=== PATIENT | female | born 1940 | race Caucasian/White ===

== ENCOUNTER 2016-04-28 16:02 | Emergency (ER) | payer MEDICARE ==
[~2016-04-28 16:02] MED LIST: AMLO5TAB2 PO; AMLO5TAB4 PO; ASPI325T4 PO; ASPI81TA9 PO; CHOL500015 PO; CLOP75TA PO; CLOP75TA27 PO; FERR325T31 PO; HYDR-2762 PO; LISI-334 PO; MAGN400C PO; METO25TA4 PO; NITR1PAT26 TD; PANT20TA3 PO; PRED2.5T PO; PRED5TAB PO; SIMV40TA3 PO
--- NOTE | 2016-04-28 16:50 | ED.ADGEN ---
Past History Past Medical History: COPD, High Cholesterol, Hypertension, PA, Renal Failure, TIA, Other Past Surgical History: Appendectomy, Cholecystectomy, Oophorectomy, Other Smoking: Quit Greater Than 1 Year Alcohol Use: None Drug Use: None Adult General HPI HPI Patient is a 76-year-old female presents emergency department by ambulance. She is accompanied by her daughter. Patient suffered a stroke last week. She was discharged from the hospital 48 hours ago. Her daughter feels that she has had a decline in her mental status since that time. On Friday she was indicating with her head yes or no and today she is not communicating that. Patient's daughter is also concerned about her blood pressure. Of note, her doctor did instruct home health nurse to give her dose of amlodipine. The daughter decided that the patient should come to the hospital instead. She has not want an IV or blood work at this time. She does not want another CT scan done. We will check to see if the patient possibly has a urinary tract infection some decreased mental status. Patient has no fevers, nausea, vomiting. Review of Systems Review of Systems Constitutional: Denies fever or chills [] Eyes: Denies change in visual acuity, redness, or eye pain [] HENT: Denies nasal congestion or sore throat [] Respiratory: Denies cough or shortness of breath [] Cardiovascular: No additional information not addressed in HPI [] GI: Denies abdominal pain, nausea, vomiting, bloody stools or diarrhea [] : Denies dysuria or hematuria [] Musculoskeletal: Denies back pain or joint pain [] Integument: Denies rash or skin lesions [] Neurologic: Denies headache, focal weakness or sensory changes [] Endocrine: Denies polyuria or polydipsia [] Current Medications Current Medications Current Medications Medications (Trade) Dose Ordered Sig/Jerry Start Time Stop Time Status Last Admin Dose Admin Amlodipine Besylate (Norvasc) 5 mg 1X ONCE 04/28/16 17:15 04/28/16 17:16 DC 04/28/16 17:10 5 MG Allergies Allergies Allergies Coded Allergies Type Severity Reaction Last Updated Verified cephalexin Allergy Severe "It affects my nuscles" 09/18/13 Yes ciprofloxacin Allergy Intermediate rash 07/12/14 No Physical Exam Physical Exam Constitutional: Well developed, well nourished, no acute distress, non-toxic appearance. [] HENT: Normocephalic, atraumatic, bilateral external ears normal, oropharynx moist, no oral exudates, nose normal. [] Eyes: PERRLA, EOMI, conjunctiva normal, no discharge. [] Neck: Normal range of motion, no tenderness, supple, no stridor. [] Cardiovascular:Heart rate regular rhythm, no murmur [] Lungs & Thorax: Bilateral breath sounds clear to auscultation [] Abdomen: Bowel sounds normal, soft, no tenderness, no masses, no pulsatile masses. [] Skin: Warm, dry, no erythema, no rash. [] Back: No tenderness, no CVA tenderness. [] Extremities: No tenderness, no cyanosis, no clubbing, ROM intact, no edema. 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 [] Current Patient Data Vital Signs Vital Signs Date Time Temp Pulse Resp B/P Pulse Ox O2 Delivery O2 Flow Rate FiO2 04/28/16 17:25 147/93 04/28/16 17:10 79 04/28/16 16:10 99.5 20 97 Room Air EKG EKG EKG interpreted by me, normal sinus rhythm, 76 bpm, no ST segment elevation, leftward axis, no change from previous. [] Radiology/Procedures Radiology/Procedures [] Course & Med Decision Making Course & Med Decision Making Pertinent Labs and Imaging studies reviewed. (See chart for details) Patient is a reassuring urinalysis. She will be did give her the 1 dose of amlodipine and a blood pressures responded nicely. He is now 147/77. The patient is smiling and communicating nonverbally. Her daughter is happy with the plan and ready to take her home at this point. She will of course return to emergency department sooner she develops any new or worsening symptoms. [] Final Impression Final Impression Hypertension [] Problems: Dragon Disclaimer Dragon Disclaimer This chart was dictated in whole or in part using Voice Recognition software in a busy, high-work load, and often noisy Emergency Department environment. It may contain unintended and wholly unrecognized errors or omissions. MARIELLA NINA MD Apr 28, 2016 16:50
[2016-04-28] MEDS ORDERED: AMLODIPINE BESYLATE 5 MG TABLET PO ONE (17:15)
[2016-04-28 17:31] LABS: CLARITY,URINE CLEAR; COLOR,URINE YELLOW; GLUCOSE,URINE NEG (NEG)
[2016-04-28 17:32] LABS: BILIRUBIN,URINE SMALL (NEG); NITRITE,URINE NEG (NEG); UROBILINOGEN,URINE 1 mg/dL (0.2 mg/dL)
[2016-04-28 17:35] VITALS: BP 148/92
--- NOTE | 2016-04-29 06:22 | EKG ---
[address] [id number] Test Date: 2016-04-28 Test Time: 16:17:02 Pat Name: CHRISTIAN YOUNG Department: Room: Gender: F Radio Assembler: : 1940 Requested By: MARIELLA NINA Order Number: [id number] Reading MD: Reynaldo Cerda Measurements Intervals [place] Rate: 76 P: -9 LA: 140 QRS: -14 QRSD: 110 T: -33 QT: 420 QTc: 477 Interpretive Statements SINUS RHYTHM RBBB CANNOT RULE OUT INFERIOR INFARCT PAC Electronically Signed On 04-30-2016 9:56:00 REGISTERED NURSE MIDWIFE by Reynaldo Cerda
== END 2016-04-28 17:58 | disposition home or self-care (01) ==
LOC: ER 16:04
DX: I10 Essential (primary) hypertension (principal); J44.9 Chronic obstructive pulmonary disease, unspecified; E78.00 Pure hypercholesterolemia, unspecified; I25.2 Old myocardial infarction; N19 Unspecified kidney failure; Z86.73 Personal history of transient ischemic attack (TIA), and cerebral infarction without residual deficits; Z87.891 Personal history of nicotine dependence; Z88.1 Allergy status to other antibiotic agents
CPT/HCPCS: 51701; 81003; 93005; 99283-25; 99284-25